=== PATIENT | male | born 1955 | race Hispanic/Latino ===

== ENCOUNTER → 2022-11-08 | Outpatient (CLI) | payer OTHER ==
[2022-11-08 16:48] LABS: CREATININE 1.1 mg/dL (0.5-1.5)
== END | disposition home or self-care (01) ==
LOC: LAB 14:37
PROVIDERS: ATTEND Internal Medicine Cardiovascular Disease
DX: I10 Essential (primary) hypertension (principal)
CPT/HCPCS: 36415; 80048

== ENCOUNTER → 2022-11-10 | Outpatient (CLI) | payer OTHER | END | disposition home or self-care (01) | LOC: RAH 12:09 → EDUNIT# 13:00 | PROVIDERS: ATTEND Internal Medicine Cardiovascular Disease | DX: Z13.6 Encounter for screening for cardiovascular disorders (principal) | CPT/HCPCS: 75571 ==

== ENCOUNTER → 2022-11-11 | Outpatient (CLI) | payer OTHER ==
[~2022-11-11] MED LIST: IOHEXOL 350 MG/ML 100ML INFUS..BTL IV ONE
== END | disposition home or self-care (01) ==
LOC: RAH 07:46 → EDUNIT# 08:00
PROVIDERS: ATTEND Internal Medicine Cardiovascular Disease
DX: I65.23 Occlusion and stenosis of bilateral carotid arteries (principal)
CPT/HCPCS: 70498; Q9967

== ENCOUNTER → 2022-11-13 | Outpatient (CLI) | payer OTHER | END | disposition home or self-care (01) | LOC: SHCH 14:26 → EDUNIT# 15:00 | PROVIDERS: ATTEND Internal Medicine Cardiovascular Disease | DX: I51.7 Cardiomegaly (principal); I35.8 Other nonrheumatic aortic valve disorders; R06.02 Shortness of breath | CPT/HCPCS: 93306 ==

== ENCOUNTER 2023-02-25 07:05 | Day surgery (SDC) | payer OTHER ==
[2023-02-23 08:58] LABS: BASOPHILS # (AUTO) 0.05 K/uL (0.00-0.20); BASOPHILS % (AUTO) 0.5 % (0.0-5.0); EOSINOPHILS # (AUTO) 0.04 K/uL (0.00-0.70); EOSINOPHILS % (AUTO) 0.4 % (0.0-8.0); HEMATOCRIT 47.5 % (42-54); IMMATURE GRANULOCYTE ABSOLUTE 0.07 K/uL (0-1); LYMPHOCYTES # (AUTO) 2.4 K/uL (1.0-4.8); MEAN CORPUSCULAR HEMOGLOBIN 30.7 pg (27.0-33.0); MEAN CORPUSCULAR HGB CONC 34.1 g/dL (32.0-36.0); MONOCYTES % (AUTO) 9.5 % (3.0-13.0); NEUTROPHILS # (AUTO) 6.8 K/uL (1.8-7.7); NEUTROPHILS % (AUTO) 65.9 % (40.0-77.0); PLATELET COUNT (AUTO) 367 K/uL (130-400); RED BLOOD CELL COUNT(AUTO) 5.28 MIL/uL (4.50-6.20); RED CELL DISTRIBUTION WIDTH 12.6 % (11.0-15.5); WHITE BLOOD COUNT (AUTO) 10.3 K/uL (4.8-10.8)
[2023-02-23 09:00] VITALS: BP 157/70; PULSE 99; RESP 20
[2023-02-23 09:11] LABS: ADD UA MICROSCOPIC YES
[2023-02-23 09:12] LABS: APPEARANCE,URINE CLEAR (CLEAR); BILIRUBIN,URINE NEGATIVE (NEGATIVE); COLOR,URINE COLORLESS (YELLOW); GLUCOSE, URINE (UA) >=1000 mg/dL (NEGATIVE); KETONES,URINE NEGATIVE (NEGATIVE); LEUKOCYTE ESTERASE ,URINE NEGATIVE Leu/uL (NEGATIVE); NITRATE,URINE NEGATIVE (NEGATIVE); OCCULT BLOOD,URINE NEGATIVE (NEGATIVE); PH,URINE 5.5 (5.0-8.0); PROTEIN,URINE NEGATIVE (NEGATIVE); RBC,URINE 0-1 /HPF (0-1); UROBILINOGEN,URINE 0.2 mg/dL (0.2-1.0)
[2023-02-23 09:16] LABS: INR < 0.93 (0.85-1.15); POTASSIUM 5.5 mmol/L (3.5-5.1); PROTHROMBIN TIME 10.1 SEC (9.6-11.6)
[2023-02-23 09:17] LABS: PARTIAL THROMBOPLASTIN TIME 30.9 SEC (26.3-35.5)
[2023-02-23 09:49] LABS: B-TYPE NATRIURETIC PEPTIDE 20 pg/mL (0-100)
[~2023-02-25] VITALS: Ht 165.1 cm; Wt 60.5 kg
[2023-02-25] VITALS (22 sets, daily range): BP systolic 93–125; BP diastolic 40–79; PULSE 60–87; RESP 12–20
[~2023-02-25 07:05] MED LIST changes: +AEC81 PO; -IOHEXOL 350 MG/ML 100ML INFUS..BTL IV ONE; +LISI20TA24 PO; +METF-446 PO; +PIOG30TA70 PO
[2023-02-25] MEDS ORDERED: 0.9%NACL 1000ML 1,000 ML IV ONE (08:14)
[2023-02-25] MEDS ORDERED: LIDOCAINE HCL 400MG/20ML VIAL ONE (10:56)
[2023-02-25] MEDS ORDERED: IOHEXOL 350 MG/ML 100ML INFUS..BTL IV ONE (10:56)
[2023-02-25] MEDS ORDERED: SODIUM BICARB 50MEQ 50ML VIAL 50 ML ONE (10:56)
[2023-02-25] MEDS ORDERED: NITROGLYCERIN 50MG VIAL ONE (10:57)
[2023-02-25] MEDS ORDERED: HEPARIN 10,000 UNIT/10ML (1,000 UNIT/ML) VIAL ONE (10:58)
[2023-02-25] MEDS ORDERED: MIDAZOLAM HCL 1 MG/ML 2ML VIAL ONE (11:06)
[2023-02-25] MEDS ORDERED: MEPERIDINE-PF 25 MG/ML SYG ONE (11:06)
[2023-02-25] MEDS ORDERED: CLOPIDOGREL 300MG TAB ONE (11:19)
[2023-02-25] MEDS ORDERED: ASPIRIN 81MG CHEW TAB ONE (11:19)
[2023-02-25] MEDS ORDERED: ATROPINE 1MG SYG IVP ONE ×2 (11:38→15:30)
[2023-02-25] MEDS ORDERED: DEXTROSE 50%-WATER 50 ML DISP.SYRIN IV PRN (13:00)
[2023-02-25] MEDS ORDERED: 0.9%NACL 1000ML 1,000 ML IV SCH (13:00)
[2023-02-25] MEDS ORDERED: GLUCAGON 1MG KIT 1 MG ML IM PRN (13:00)
[2023-02-25 13:57] LABS: INR < 0.93 (0.85-1.15); PROTHROMBIN TIME 10.7 SEC (9.6-11.6)
[2023-02-25 14:18] LABS: PARTIAL THROMBOPLASTIN TIME 98.5 SEC (26.3-35.5)
[2023-02-25] MEDS ORDERED: INSULIN HUMULIN R 100 UNIT/ML 3ML ONE (14:25)
[2023-02-25] MEDS ORDERED: MORPHINE 2 MG SYG ONE (15:30)
[2023-02-25] MEDS ORDERED: INSULIN HUMULIN R 100 UNIT/ML 3ML SQ SCH (16:30)
== END 2023-02-25 10:10 | disposition home or self-care (01) ==
LOC: DAH 07:05
PROVIDERS: ATTEND Internal Medicine Cardiovascular Disease
DX: I25.119 Atherosclerotic heart disease of native coronary artery with unspecified angina pectoris (principal); I65.23 Occlusion and stenosis of bilateral carotid arteries; E11.51 Type 2 diabetes mellitus with diabetic peripheral angiopathy without gangrene; I10 Essential (primary) hypertension; J44.9 Chronic obstructive pulmonary disease, unspecified; K21.9 Gastro-esophageal reflux disease without esophagitis; E78.5 Hyperlipidemia, unspecified; F17.210 Nicotine dependence, cigarettes, uncomplicated; Z83.3 Family history of diabetes mellitus; Z72.89 Other problems related to lifestyle; Z79.82 Long term (current) use of aspirin; Z79.84 Long term (current) use of oral hypoglycemic drugs; Z79.899 Other long term (current) drug therapy; Z98.41 Cataract extraction status, right eye; Z98.42 Cataract extraction status, left eye
CPT/HCPCS: 80048; 83880; 85025; 85610 ×2; 85730 ×3; 81001; 36415 ×2; 71045; 93005; 36225; 93458; 37218; 84132; 85347 ×2; 82948 ×2; J1815; Q9965; A4223 ×3; C1769 ×2; C1894; C1884; C1893; C1725; C1876; J3490 ×3; J2270; J7030 ×2; J0461; J1644 ×2; J2250; J2175; Q9967; A4215; A4222; A4221; A4663; A4216; A4606; 36223; 99156; 99157

== ENCOUNTER → 2023-08-05 | Outpatient (CLI) | payer OTHER ==
[~2023-08-05] MED LIST changes: -LISI20TA24 PO
== END | disposition home or self-care (01) ==
LOC: SHCH 07:59
PROVIDERS: ATTEND Internal Medicine Cardiovascular Disease
DX: I65.21 Occlusion and stenosis of right carotid artery (principal); Z95.828 Presence of other vascular implants and grafts
CPT/HCPCS: 93880

== ENCOUNTER → 2023-08-31 | Outpatient (CLI) | payer OTHER ==
[~2023-08-31] VITALS: Ht 162.6 cm; Wt 63.3 kg
[~2023-08-31] MED LIST changes: +AMLO2.5T4 PO; +CLOP-31 PO; +LISI10TA24 PO; +ROSU10TA72 PO
[2023-08-31 08:50] VITALS: BP 143/70; PULSE 77; RESP 18
[2023-08-31 08:54] LABS: BASOPHILS # (AUTO) 0.06 K/uL (0.00-0.20); BASOPHILS % (AUTO) 0.7 % (0.0-5.0); EOSINOPHILS # (AUTO) 0.09 K/uL (0.00-0.70); HEMATOCRIT 48.5 % (42-54); IMMATURE GRANULOCYTE ABSOLUTE 0.06 K/uL (0-1); LYMPHOCYTES # (AUTO) 2.7 K/uL (1.0-4.8); LYMPHOCYTES % (AUTO) 30.3 % (21.0-51.0); MEAN CORPUSCULAR HEMOGLOBIN 30.9 pg (27.0-33.0); MEAN CORPUSCULAR HGB CONC 34.4 g/dL (32.0-36.0); MEAN CORPUSCULAR VOLUME 89.8 fL (79-99); MONOCYTES # (AUTO) 0.8 K/uL (0.1-1.0); MONOCYTES % (AUTO) 8.5 % (3.0-13.0); NEUTROPHILS # (AUTO) 5.3 K/uL (1.8-7.7); NEUTROPHILS % (AUTO) 58.8 % (40.0-77.0); PLATELET COUNT (AUTO) 332 K/uL (130-400); RED CELL DISTRIBUTION WIDTH 13.3 % (11.0-15.5)
[2023-08-31 09:07] LABS: INR <= 0.93 (0.85-1.15); PROTHROMBIN TIME 10.2 SEC (9.6-11.6)
[2023-08-31 09:08] LABS: CREATININE 0.7 mg/dL (0.5-1.3)
[2023-08-31 09:09] LABS: PARTIAL THROMBOPLASTIN TIME 26.8 SEC (26.3-35.5)
[2023-08-31 09:20] LABS: ADD UA MICROSCOPIC YES; APPEARANCE,URINE CLEAR (CLEAR); BILIRUBIN,URINE NEGATIVE (NEGATIVE); COLOR,URINE LIGHT-YELLOW (YELLOW); GLUCOSE, URINE (UA) >=1000 mg/dL (NEGATIVE); KETONES,URINE NEGATIVE (NEGATIVE); LEUKOCYTE ESTERASE ,URINE 250 Leu/uL (NEGATIVE); NITRATE,URINE NEGATIVE (NEGATIVE); OCCULT BLOOD,URINE NEGATIVE (NEGATIVE); PH,URINE 5.5 (5.0-8.0); PROTEIN,URINE NEGATIVE (NEGATIVE); UROBILINOGEN,URINE 0.2 mg/dL (0.2-1.0)
[2023-08-31 09:33] LABS: RBC,URINE 0-1 /HPF (0-1)
== END | disposition home or self-care (01) ==
LOC: DAH 10:00 → EDSTATUS 09-02 08:00
PROVIDERS: ATTEND Internal Medicine Cardiovascular Disease
DX: Z01.818 Encounter for other preprocedural examination (principal); I65.21 Occlusion and stenosis of right carotid artery; I70.0 Atherosclerosis of aorta; M47.814 Spondylosis without myelopathy or radiculopathy, thoracic region
CPT/HCPCS: 36415; 71045; 80048; 81001; 85025; 85610; 85730; 86850; 86900; 86901; 87088; 93005

== ENCOUNTER → 2024-02-21 | Outpatient (CLI) | payer OTHER ==
[~2024-02-21] MED LIST changes: +AMLO-257 PO; -AMLO2.5T4 PO; +ATOR40TA69 PO; +FLUT1BLS15 IH; -LISI10TA24 PO; +LISI20TA24 PO; -PIOG30TA70 PO; -ROSU10TA72 PO
--- NOTE | 2024-02-21 15:52 | HMCSR ---
APPROVED REPORT Laterality: Bilateral Doppler Spectral Velocity Analysis PSV / EDVPSV / EDV ECA (R) 475 / cm/sECA (L) 135 / cm/s dICA (R) 176 / 53 cm/sdICA (L) 116 / 37 cm/s Jose Roberto (R) 140 / 40 cm/smICA (L) 97 / 28 cm/s pICA (R) 196 / 53 cm/spICA (L) 101 / 33 cm/s dCCA (R) 63 / 21 cm/sdCCA (L) 115 / 21 cm/s mCCA (R) 72 / 22 cm/smCCA (L) 117 / 22 cm/s pCCA (R) 71 / 18 cm/spCCA (L) 117 / 24 cm/s Vert (R) 45 / cm/sVert (L) 50 / cm/s Subl. (R) 105 / cm/sSubl. (L) 145 / cm/s ICA/CCA 2.72ICA/CCA 0.99 Technologist Impression Mild heterogenous plaque noted in the bilateral carotid arteries. There is evidence of right internal carotid artery stent with elevated velocities suggestive of 50-69 % stenosis. Significant velocities noted in the right external carotid artery. There is evidence of a left internal carotid artery stent which appears patent. The bilateral vertebral arteries reflect antegrade flow. Conclusion Mild heterogenous plaque noted in the bilateral carotid arteries. There is evidence of right internal carotid artery stent with elevated velocities suggestive of 50-69 % stenosis. Significant velocities noted in the right external carotid artery. There is evidence of a left internal carotid artery stent which appears patent. The bilateral vertebral arteries reflect antegrade flow. Conclusion Mild heterogenous plaque noted in the bilateral carotid arteries. There is evidence of right internal carotid artery stent with elevated velocities suggestive of 50-69 % stenosis. Significant velocities noted in the right external carotid artery. There is evidence of a left internal carotid artery stent which appears patent. The bilateral vertebral arteries reflect antegrade flow.
== END | disposition home or self-care (01) ==
LOC: SHCH 08:29
PROVIDERS: ATTEND Internal Medicine Cardiovascular Disease
DX: I65.23 Occlusion and stenosis of bilateral carotid arteries (principal)
CPT/HCPCS: 93880

== ENCOUNTER → 2024-05-15 | Outpatient (CLI) | payer OTHER ==
[2024-05-15 12:38] LABS: ALBUMIN 3.7 g/dL (3.5-5.0); BILIRUBIN,TOTAL 0.4 mg/dL (0.2-1.0); CREATININE 0.6 mg/dL (0.5-1.3); POTASSIUM 4.8 mmol/L (3.5-5.1); TOTAL PROTEIN, SERUM 7.7 g/dL (6.0-8.3)
== END | disposition home or self-care (01) ==
LOC: LAB 08:10
PROVIDERS: ATTEND Internal Medicine Cardiovascular Disease
DX: I10 Essential (primary) hypertension (principal)
CPT/HCPCS: 36415; 80053; 80061

== ENCOUNTER → 2024-05-22 | Outpatient (CLI) | payer OTHER ==
--- NOTE | 2024-05-23 08:13 | HMCSR ---
APPROVED REPORT Laterality: Bilateral Indications r09.89 Doppler Spectral Velocity Analysis PSV / EDVPSV / EDV ECA (R) 459 / cm/sECA (L) 146 / cm/s dICA (R) 181 / 46 cm/sdICA (L) 106 / 33 cm/s Jose Roberto (R) 179 / 48 cm/smICA (L) 106 / 29 cm/s pICA (R) 219 / cm/spICA (L) 101 / 18 cm/s dCCA (R) 68 / 21 cm/sdCCA (L) 99 / 22 cm/s mCCA (R) 64 / 19 cm/smCCA (L) 114 / 27 cm/s pCCA (R) 65 / 19 cm/spCCA (L) 99 / 17 cm/s Vert (R) 42 / cm/sVert (L) 43 / cm/s Subl. (R) 135 / cm/sSubl. (L) 158 / cm/s ICA/CCA 3.22ICA/CCA 0.93 Technologist Impression Mild heterogenous plaque seen in bilateral carotid arteries. BRE stent seen with elevated velocities of 219cm/s suggestive of 50-69 % stenosis. Elevated velocities in RECA of 460cm/s LICA appears patent without stenosis, stent seen.. Bilateral vertebral arteries appear patent with antegrade flow. Conclusion Mild heterogenous plaque seen in bilateral carotid arteries. BRE stent seen with elevated velocities of 219cm/s suggestive of 50-69 % stenosis. Elevated velocities in RECA of 460cm/s LICA appears patent without stenosis, stent seen.. Bilateral vertebral arteries appear patent with antegrade flow. Conclusion Mild heterogenous plaque seen in bilateral carotid arteries. BRE stent seen with elevated velocities of 219cm/s suggestive of 50-69 % stenosis. Elevated velocities in RECA of 460cm/s LICA appears patent without stenosis, stent seen.. Bilateral vertebral arteries appear patent with antegrade flow.
== END | disposition home or self-care (01) ==
LOC: SHCH 08:05
PROVIDERS: ATTEND Internal Medicine Cardiovascular Disease
DX: I65.23 Occlusion and stenosis of bilateral carotid arteries (principal); R09.89 Other specified symptoms and signs involving the circulatory and respiratory systems
CPT/HCPCS: 93880